=== PATIENT | male | born 1950 ===

== ENCOUNTER → 2017-07-21 | Outpatient (CLI) | payer MEDICARE ==
--- NOTE | 2017-07-21 16:45 | RADIOLOGY IMAGING REPORT ---
FACILITY: [facility] [place] PATIENT NAME: Harry Arellano : 1950 MR: [id number] V: [id number] EXAM DATE: ORDERING PHYSICIAN: ESVEN BOYD TECHNOLOGIST: [place] [facility] [place] Arellano : 1950 Visit/Account:[id number] Date of Sevice: 07/21/2017 EXAMINATION: Ultrasound bilateral lower extremity PIOTR and PVR waveforms HISTORY: Paresthesias COMPARISON: None. FINDINGS: PIOTR on the right is 1.31. Triphasic PVR is present PIOTR on the left is 1.31. Triphasic PVR is present IMPRESSION: Normal ABIs Report Dictated By: Forrest Maxwell at 07/21/2017 4:38 PM Report E-Signed By: Forrest Maxwell at 07/21/2017 4:41 PM WSN:[email or web address]
== END ==
LOC: US 15:02
PROVIDERS: ATTEND Family Medicine
DX: R20.9 Unspecified disturbances of skin sensation (principal)
CPT/HCPCS: 93922